=== PATIENT | female | born 1975 | race African-American/Black ===

== ENCOUNTER 2021-12-19 09:08 | Emergency (ER) | payer OTHER ==
[~2021-12-19] VITALS: Ht 167.6 cm; Wt 118.0 kg
[2021-12-19] MEDS ORDERED: ALBUTEROL (0.083%) 2.5MG/3ML NEB HHN STA (09:32)
[2021-12-19 11:19] LABS: BASOPHILS % 0.6 % (0.0-2.0); EOSINOPHILS % 0.6 % (0.0-5.0); HEMATOCRIT. 38.6 % (36.0-48.0); HEMOGLOBIN. 11.9 g/dL (12.0-16.0); LYMPHOCYTES % 39.5 % (20.0-50.0); MEAN CORPUSCULAR VOLUME 81.3 fL (81.0-99.0); MONOCYTES % 7.3 % (2.0-8.0); PLATELET 133 x1000/uL (130-400); RED BLOOD CELL COUNT 4.76 mill/uL (4.2-5.4); RED CELL DISTRIBUTION WIDTH 15.3 % (11.6-14.6)
[2021-12-19 11:29] LABS: CHLORIDE 117 mEq/L (98-107)
[2021-12-19 11:33] LABS: D-DIMER < 0.19 mg/L FEU (<0.50); PROTHROMBIN TIME 44.2 sec (9.6-11.0)
[2021-12-19 11:38] LABS: HCG SCREEN NEGATIVE
[2021-12-19] MEDS ORDERED: SODIUM CHLORIDE 0.9% 1000ML BAG (SEPSIS BOLUS) IV SCH (12:00)
[2021-12-19] MEDS ORDERED: PIPERACILLIN/TAZ 3.375G PREMIX 50 ML IV ONE (12:00)
[2021-12-19 12:01] LABS: INR 4.7
[2021-12-19 14:00] VITALS: BP 127/68
[2021-12-19 15:02] LABS: CLARITY URINE CLOUDY (CLEAR); COLOR URINE DARK YELLOW (YELLOW); KETONES URINE 1+ (NEGATIVE); LEUKOCYTE ESTERASE URINE NEGATIVE (NEGATIVE); NITRITE URINE NEGATIVE (NEGATIVE); OCCULT BLOOD URINE NEGATIVE (NEGATIVE); PROTEIN URINE 2+ (NEGATIVE)
== END 2021-12-19 14:36 | disposition short-term general hospital (02) ==
LOC: EDBD 09:45 → ER 09:45
DX: A41.9 Sepsis, unspecified organism (principal); N17.9 Acute kidney failure, unspecified; D64.9 Anemia, unspecified; R05.9 Cough, unspecified; I31.3 Pericardial effusion (noninflammatory); Z20.822 Contact with and (suspected) exposure to COVID-19
CPT/HCPCS: 36415; 71045; 71250; 80053; 81003; 83605; 83880; 84145; 84484; 84703; 85025; 85379; 85610; 87040; 87086; 87426; 87804; 93005; 96365; 99291; J2543; J7030; Z7610